=== PATIENT | male | born 1990 | race Caucasian/White ===

== ENCOUNTER 2024-01-28 08:38 | Outpatient (CLI) | payer OTHER, SELFPAY ==
[2024-01-28 08:55] LABS: Basophils % 0.6 %; Eosinophils # 0.1 10^3/uL (0.0-0.8); Eosinophils % 1.1 %; Hematocrit 49.2 % (37-53); Lymphocytes # 1.8 10^3/uL (0.8-4.8); Lymphocytes % 25.2 %; Mean Corpuscular HGB Conc 32.1 g/dL (30-55); Mean Corpuscular Hemoglobin 27.9 pg (27-33); Mean Corpuscular Volume 86.9 fl (82-101); Mean Platelet Volume 9.8 fL (7.4-10.4); Monocytes # 0.6 10^3/uL (0.2-0.9); Monocytes % 8.6 %; Neutrophils # 4.65 10^3/uL (1.8-7.7); Neutrophils % 64.2 %; Nucleated Red Blood Cells % 0 %; Platelet Count 214 10^3/cmm (157-399); Red Blood Count 5.66 10^6/uL (3.85-5.65); Red Cell Distribution Width 12.7 % (12.1-15.1); White Blood Count 7.23 10^3/uL (3.29-11.43)
[2024-01-28 09:33] LABS: Alanine Aminotransferase 26 U/L (0-41); Albumin Level 4.7 g/dL (3.5-5.2); Alkaline Phosphatase 92 U/L (40-130); Anion Gap 11.4 (5-19); Aspartate Amino Transferase 14 U/L (0-40); Blood Urea Nitrogen 20 mg/dL (6-20); Calcium 9.8 mg/dL (8.5-10.5); Carbon Dioxide 28 mmol/L (22-29); Chloride 104 mmol/L (98-107); Chol HDL Ratio 5.65 mg/dL (1.0-5.00); Cholesterol 175 mg/dL (0-200); Globulin 2.9 g/dL (1.3-4.6); Glomerular Filtration Rate 97.2 mL/min (90-130); Glucose 98 mg/dL (65-115); HDL Cholesterol 31 mg/dL (60-100); LDL Cholesterol Calculated 123 mg/dL (50-129); LDL HDL Ratio 3.97 RATIO (0.00-3.22); Osmolality Calculated 291 mOsm/kg (285-295); Potassium 4.4 mmol/L (3.5-5.1); Sodium 139 mmol/L (136-145); Total Bilirubin 0.5 mg/dL (0.15-1.2); Total Protein 7.6 g/dL (6.6-8.7); Triglycerides 106 mg/dL (0-150)
[2024-01-28 10:24] LABS: Vitamin B12 462 pg/mL (232-1245)
[2024-01-30 02:04] LABS: Albumin 4.7 g/dL (3.6-5.1)
[2024-01-30 06:25] LABS: Testosterone Total Males IA 382 ng/dL (250-827)
[2024-01-30 07:10] LABS: Sex Hormone Binding Globulin 26 nmol/L (10-50); Testosterone Bioavailable 126.8 ng/dL (110.0-575.0); Testosterone Free 59.1 pg/mL (46.0-224.0)
== END 2024-01-28 08:39 | disposition home or self-care (01) ==
LOC: LAB 08:39
PROVIDERS: PCP Family Medicine; Visit Provider Family Medicine
DX: Z00.00 Encounter for general adult medical examination without abnormal findings (principal); Z13.6 Encounter for screening for cardiovascular disorders; R53.83 Other fatigue; R79.89 Other specified abnormal findings of blood chemistry; E03.9 Hypothyroidism, unspecified
CPT/HCPCS: 36415; 80053; 80061; 82040; 82607; 84270; 84403; 84443; 85025

== ENCOUNTER 2025-06-01 08:00 | Outpatient (CLI) | payer SELFPAY ==
[2025-06-01 09:41] LABS: Follicle Stimulating Hormone 19.3 mIU/mL (1.5-12.4)
[2025-06-01 10:28] LABS: Volume Semen 1.5 mL (2-5)
[2025-06-01 10:30] LABS: Sperm Immotility 25 % (50-60); Sperm Non-Progressive Motility 25 % (5-10); Sperm Progressive Motility 50 % (31-34); Viscosity Semen Droplets; White Blood Count Semen 0-4 /hpf
[2025-06-01 10:31] LABS: Pathology Referral Yes
[2025-06-01 10:39] LABS: Side 1 4; Sperm Count 0.1250 mill/mL (40-160)
[2025-06-01 10:40] LABS: Side 2 3
[2025-06-02 12:30] LABS: Albumin 4.7 g/dL (3.6-5.1)
[2025-06-02 14:05] LABS: Testosterone Total Males IA 333 ng/dL (250-827)
== END 2025-06-01 08:01 | disposition home or self-care (01) ==
PROVIDERS: PCP Family Medicine; Visit Provider Family Medicine
DX: Z31.69 Encounter for other general counseling and advice on procreation (principal); R79.89 Other specified abnormal findings of blood chemistry
CPT/HCPCS: 36415; 80503; 82040; 82670; 83001; 83002; 84146; 84270; 84403; 89320